=== PATIENT | male | born 1990 | race Caucasian/White ===

== ENCOUNTER 2023-03-17 01:20 | Emergency (ER) | payer OTHER, SELFPAY ==
[2023-03-17] VITALS (15 sets, daily range): BP systolic 131–154; BP diastolic 79–100; PULSE 77–106; RESP 12–20; TEMP 36.6; O2SAT 97–100
[2023-03-17] MEDS: PANTOPRAZOLE SODIUM IV 40 MG VIAL IV PUSH (05:47)
[2023-03-17] MEDS: SODIUM CHLORIDE 0.9% IV 1,000 ML 999 ML IV CONT (05:47)
[2023-03-17] MEDS: ONDANSETRON INJ 4 MG/2 ML VIAL IV PUSH (05:47)
[2023-03-17 05:51] LABS: Basophils Percent Auto 0.2 % (0.2-1.2); Eosinophils Percent Auto 0.5 % (0-4.4); Hemoglobin 16.6 g/dL (14.0-18.0); Immature Granulocyte Absolute 0.02 K/mm3 (0.00-0.031); Immature Granulocyte Percent A 0.2 % (0-0.5); Lymphocytes Absolute Auto 1.16 K/mm3 (0.9-3.2); Lymphocytes Percent Auto 13.1 % (18.3-44.2); Mean Corpuscular HGB Conc 34.6 g/dl (32-36); Mean Corpuscular Volume 83.9 fl (80-100); Mean Platelet Volume 9.9 fl (7.4-10.4); Monocytes Absolute Auto 0.7 K/mm3 (0.1-0.6); Monocytes Percent Auto 8.2 % (2.6-8.5); Neutrophils Absolute Auto 6.9 K/mm3 (1.3-6.7); Neutrophils Percent Auto 77.8 % (45.5-73.1); Platelet Count Result 225 k/mm3 (150-375); Red Blood Count 5.72 M/mm3 (4.6-6.20); White Blood Count 8.9 K/mm3 (4.5-10.0)
--- NOTE | 2023-03-17 05:57 | ED.GENADULT ---
HPI - General Adult General Chief complaint: GI Bleed Stated complaint: n/v, gi bleed Time Seen by Provider: 03/17/23 05:20 History of Present Illness HPI narrative: patient is a 32-year-old gentleman who presents emergency department with chief complaint of nausea and vomiting. The patient reports that since Saturday he has had multiple episodes of vomiting and reports that he noticed his vomitus was kind of a coffee-ground color. The patient reports that he has an indigestion feeling with this the patient denies diarrhea but does report that his stool has been somewhat blackish color. Related Data Allergies Allergy/AdvReac Type Severity Reaction Status Date / Time No Known Allergies Allergy Verified 03/17/23 01:27 Review of Systems Review of Systems: A 10 system review of systems was completed on the patient and is negative except for what is stated in the HPI. Nursing and ancillary documentation was reviewed. Exam Narrative: GENERAL: Well-appearing, well-nourished, and in no acute distress. HEAD: Normocephalic, atraumatic. EYES: PERRLA and EOMI. ENT: Nares clear, no rhinorrhea or epistaxis. Mucous membranes moist. NECK: Supple. CHEST: Clear to auscultation. No respiratory distress. HEART: Regular rate and rhythm. No murmur heard. Normal peripheral pulses. ABDOMEN: Soft, nontender, nondistended, normal active bowel sounds. : Trace guaiac-positive stool no bright red blood EXTREMITIES: Normal range of motion. No edema. SKIN: Warm, dry, no rash. NEURO: No focal deficits. Alert and oriented x3. PSYCH: Normal mood and affect. Course Course Emergency Course: differential diagnosis includes gastroenteritis, colitis, Vital Signs Vital signs: Vital Signs Temperature 36.6 C 03/17/23 01:24 Pulse Rate 106 H 03/17/23 01:24 Respiratory Rate 20 03/17/23 01:24 Blood Pressure 140/99 H 03/17/23 01:24 Pulse Oximetry 97 03/17/23 01:24 Oxygen Delivery Room Air 03/17/23 01:24 Temperature 36.6 C 03/17/23 01:24 Pulse Rate 83 03/17/23 07:00 Respiratory Rate 14 03/17/23 07:00 Blood Pressure 131/98 H 03/17/23 06:02 Pulse Oximetry 99 03/17/23 07:00 Oxygen Delivery Room Air 01/21/24 01:24 Medical Decision Making Vital Signs Vital Signs: Vital Signs Temperature 36.6 C 03/17/23 01:24 Pulse Rate 106 H 03/17/23 01:24 Respiratory Rate 20 03/17/23 01:24 Blood Pressure 140/99 H 03/17/23 01:24 Pulse Oximetry 97 03/17/23 01:24 Oxygen Delivery Room Air 03/17/23 01:24 Temperature 36.6 C 03/17/23 01:24 Pulse Rate 83 03/17/23 07:00 Respiratory Rate 14 03/17/23 07:00 Blood Pressure 131/98 H 03/17/23 06:02 Pulse Oximetry 99 03/17/23 07:00 Oxygen Delivery Room Air 03/17/23 01:24 Lab Data 03/17/23 05:43 03/17/23 06:19 Labs: Lab Results 03/17/23 03/17/23 Range/Units 05:43 06:19 WBC 8.9 (4.5-10.0) K/mm3 RBC 5.72 (4.6-6.20) M/mm3 Hgb 16.6 (14.0-18.0) g/dL Hct 48.0 (42.0-52.0) % MCV 83.9 (80-100) fl MCH 29.0 (26-34) pg MCHC 34.6 (32-36) g/dl RDW 12.0 (11.5-14.5) % Plt Count 225 (150-375) k/mm3 MPV 9.9 (7.4-10.4) fl Immature Gran % (Auto) 0.2 (0-0.5) % Neut % (Auto) 77.8 H (45.5-73.1) % Lymph % (Auto) 13.1 L (18.3-44.2) % Tate % (Auto) 8.2 (2.6-8.5) % Eos % (Auto) 0.5 (0-4.4) % Baso % (Auto) 0.2 (0.2-1.2) % Lymph # (Auto) 1.16 (0.9-3.2) K/mm3 Tate # (Auto) 0.7 H (0.1-0.6) K/mm3 Eos # (Auto) 0.0 (0-0.3) K/mm3 Baso # (Auto) 0.0 (0.0-0.1) K/mm3 Abs Immat Gran (auto) 0.02 (0.00-0.031) K/mm3 Absolute Neuts (auto) 6.9 H (1.3-6.7) K/mm3 Absolute Nucleated RBC 0.0 (0.0-0.012) K/mm3 Nucleated RBC % 0.0 (0.0-0.2) % PT 13.6 (11.1-14.7) Seconds INR 1.0 APTT 25.5 (22.3-36.8) SECONDS Sodium 134 L (137-145) mmol/L Potassium 3.8 (3.4-5.0) mmol/L Chloride 94 L (98-107) mmol/L Carbon Di
[2023-03-17 06:00] LABS: Partial Thromboplastin Time 25.5 SECONDS (22.3-36.8); Prothrombin Time 13.6 Seconds (11.1-14.7)
[2023-03-17 06:37] LABS: Alanine Aminotransferase 44 U/L (6-50); Albumin Level 4.2 g/dL (3.5-5.1); Alkaline Phosphatase 58 U/L (38-126); Anion Gap 9 mmol/L (8-16); Aspartate Amino Transferase 43 U/L (17-59); Bilirubin,Total 1.2 mg/dL (0.2-1.3); Blood Urea Nitrogen 23 mg/dL (9-20); Calcium 8.6 mg/dL (8.4-10.2); Carbon Dioxide 31 mmol/L (22-30); Chloride 94 mmol/L (98-107); Estimated CRCL calculation 103 ml/min; Estimated Glomerular Filt Rate > 60; Glucose 101 mg/dL (65-110); Lipase 28 U/L (23-300); Potassium 3.8 mmol/L (3.4-5.0); Sodium 134 mmol/L (137-145)
== END 2023-03-17 07:43 | disposition home or self-care (01) ==
PROVIDERS: Emergency Provider Emergency Medicine
DX: K52.9 Noninfective gastroenteritis and colitis, unspecified (principal)
CPT/HCPCS: 36415; 80053; 83690; 85025; 85610; 85730; 96361; 96374; 96375; 99284; C9113; J2405; J7030